=== PATIENT | male | born 1995 | race Caucasian/White ===

== ENCOUNTER 2021-02-18 09:46 | Emergency (ER) | payer OTHER, SELFPAY ==
[2021-02-18 10:13] VITALS: BP 143/82; PULSE 96; RESP 18; TEMP 36.4; O2SAT 97; BMI 31.4
--- NOTE | 2021-02-18 10:24 | XRR_ITS ---
PROCEDURE INFORMATION: Exam: XR Chest Exam date and time: 02/18/2021 10:41 AM Age: 26 years old Clinical indication: Cough and dyspnea; Additional info: Dyspnea/cough TECHNIQUE: Imaging protocol: XR of the chest Views: 1 view. COMPARISON: No relevant prior studies available. FINDINGS: Lungs: Unremarkable. No consolidation. Pleural spaces: Unremarkable. No pleural effusion. No pneumothorax. Heart/Mediastinum: Unremarkable. No cardiomegaly. Bones/joints: Unremarkable. XR/XR chest 1V portable [id number] IMPRESSION: No acute findings.
--- NOTE | 2021-02-18 11:06 | ED_ITS ---
HPI - COVID General: Chief Complaint: Nausea/Vomiting/Diarrhea Stated Complaint: covid symptoms Time Seen by Provider: 02/18/21 10:10 Triage information: Has fever, cough or shortness of breath . No known COVID + exposure last 14 days History of Present Illness: HPI Narrative: 26-year-old male presents with complaints of cough nausea vomiting diarrhea headache that began yesterday. Some the symptoms already begun to improve, cough has been minimally productive of clear sputum no anosmia. Several other family members are simultaneously in the emergency room with similar symptoms. He is not previously been tested for Covid or had at that he is aware of. Has not had a vaccination. MD complaint: has COVID symptoms Prior covid testing: no COVID 19 common symptoms: positive fever(s), chills, productive cough (Clear mucus), fatigue, body aches, nausea, vomiting and diarrhea; negative throat pain or nasal congestion COVID 19 other sytmptoms: negative chest pain Onset (ago): day(s) Severity: mild COVID Results: Nasal/Oral Coronavirus 2019 PCR Pending 02/18/21 11:00 02/18/21 Review of Systems Const: Reports: fever(s), chills, body aches and fatigue ENMT: Denies: throat pain, ear or mastoid pain, nasal discharge or nasal congestion Card: Denies: chest pain, edema, dyspnea on exertion or orthopnea Resp: Reports: productive cough (Clear mucus) GI: Reports: nausea, vomiting and diarrhea : Denies: flank pain, dysuria, urinary frequency or urinary urgency Skin/Breast: Denies: rash or pruritus PFSH ED PFSH: Social History (Updated 02/18/21 @ 10:19 by Payam Cabrera RN) Smoking and tobacco status: current every day smoker cigarettes Packs smoked per day: 0.5 Alcohol intake: current Alcohol intake frequency: holidays/special occasions only Substance/Drug Use: current Substance/Drug use frequency: few times a week Substance/Drug use type: Marijuana Physical Exam Const: COMMON NORMALS: no acute distress GENERAL APPEARANCE: cooperative and comfortable ORIENTATION/CONSCIOUSNESS: Yes awake, Yes oriented to person, Yes oriented to place and Yes oriented to time HENMT: COMMON NORMALS: normocephalic, atraumatic and hearing grossly normal bilaterally HEAD & SCALP: normocephalic and atraumatic Neck/C-Spine: COMMON NORMALS: no JVD Resp: COMMON NORMALS: normal respiratory effort, No retractions, No use of accessory muscles and clear to auscultation bilaterally AUSCULTATION: clear to auscultation bilaterally Cardio: COMMON NORMALS: no JVD, regular rate, regular rhythm and No murmurs present (Cardio) RATE: regular rate RHYTHM: regular rhythm GI: COMMON NORMALS: Soft to palpation and No hepatosplenomegaly present AUSCULTATION: Yes normoactive bowel sounds PALPATION: Yes Soft to palpation, No Tenderness to palpation present (GI), No Guarding due to palpation present (GI) and Yes No hepatosplenomegaly present Extremity: COMMON NORMALS: normal to inspection, capillary refill normal, no clubbing, cyanosis or edema, no calf tenderness and no pedal edema Neuro: SENSORIUM/ORIENTATION: Yes oriented to person, Yes oriented to place and Yes oriented to time Skin: COMMON NORMALS: no rashes or lesions noted GENERAL SKIN EXAM: no rashes or lesions noted Course Vital Signs: Vital signs: Vital Signs Temperature 97.5 F L 02/18/21 10:13 Pulse Rate 87 02/18/21 11:19 Respiratory Rate 18 02/18/21 11:19 Blood Pressure 135/76 02/18/21 11:19 Pulse Oximetry 96 02/18/21 11:19 MDM - COVID MDM Narrative: Medical decision making narrative: Exam unremarkable he is not tachycardic or hypotensive. Sats are good. He may very well have Covid. His symptoms are extremely mild I do not think there is any reason to admit or to add any medications. Supportive cares clear liquid diet advance as tolerated remain self quarantine all Covid results are returned. COVID Results: Nasal/Oral Coronavirus 2019 PCR Pending 02/18/21 11:00 02/18/21 Discharge Plan Discharge Patient Disposition: Home Clinical Impression: Viral URI with cough Condition: Stable Prescriptions: New albuterol sulfate 90 mcg/actuation HFA aerosol inhaler 2 inh INHALATION Q4H PRN (Reason: shortness of breath or wheezing) Qty: 18 RF: 0 Discharge Orders: Discharge ED (Routine); Ordered 02/18/21 Ordered By: Gucci Montejo Discharge Diet: Usual diet Discharge Activity: Resume usual activity Patient Instructions: Opioid Safety Activity Restrictions/Additional Instructions: Your tested for Covid. Recommend that you remain self quarantine until results are back. You can use albuterol as needed. If symptoms worsen or change return. 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
[2021-02-18 11:19] VITALS: BP 135/76; PULSE 87; RESP 18; O2SAT 96
[2021-02-19 16:29] LABS: Coronavirus Test Green County Not Detected
--- NOTE | 2021-02-20 08:23 | PC.NURSE ---
notified of negative COVID results
== END 2021-02-18 11:19 | disposition home or self-care (01) ==
PROVIDERS: Emergency Provider Family Medicine
DX: J06.9 Acute upper respiratory infection, unspecified (principal); F17.210 Nicotine dependence, cigarettes, uncomplicated
CPT/HCPCS: 71045; 87635; 99283

== ENCOUNTER 2021-02-19 14:36 | Emergency (ER) | payer OTHER, SELFPAY ==
[2021-02-19 15:26] VITALS: BP 114/69; PULSE 80; RESP 16; TEMP 37.3; O2SAT 95; BMI 30.8
--- NOTE | 2021-02-19 15:55 | W.ED.SYNCOPE ---
HPI - Syncope General: Chief Complaint: Syncope Stated Complaint: Fainted Time Seen by Provider: 02/19/21 15:34 Source: patient Mode of arrival: ambulatory Limitations: no limitations History of Present Illness: HPI narrative: Patient is a 26-year-old male who presents to ED today along with his significant other for complaints of a syncopal episode. Patient tells me he was straining to have a bowel movement when he passed out. Significant other states he was unconscious for less than a minute. He states he struck his lip and sustained a lip laceration. Patient states he feels completely normal now. He has no chest pain, shortness of breath, difficulty breathing. No headache, visual changes, neurologic complaints. MD complaint: loss of consciousness Onset (ago): hour(s) -: second(s) Prodromal symptoms: none Witnessed: No Context: other (straining with BM) Injuries sustained associated with event: mouth/tongue (lip laceration) Associated symptoms: Reports no associated symptoms; Deny chest pain, fever(s), headache(s), lightheadedness, nausea or vertigo Treatments prior to arrival: none Review of Systems Const: Denies: fever(s) or chills Eyes: Denies: change in vision, blurry vision or photophobia Card: Reports: syncope; Denies: chest pain, palpitations, irregular heart rhythm, edema, lightheadedness, pre-syncope, dyspnea on exertion or orthopnea Resp: Denies: dyspnea GI: Denies: nausea or vomiting Musc: Denies: neck pain, back pain, extremity pain, extremity swelling or joint pain Skin/Breast: Reports: other (lip laceration) Neuro: Denies: headache(s), numbness in extremities, weakness in extremities, sensory changes, lack of coordination, difficulty walking, frequent falls, dizziness, vertigo, confusion, Slurred speech present or seizure-like activity [facility] ED PFSH: Social History Smoking and tobacco status: current every day smoker cigarettes Packs smoked per day: 0.5 Alcohol intake: current Alcohol intake frequency: holidays/special occasions only Physical Exam Const: COMMON NORMALS: no acute distress, average body habitus, patient oriented x3, no limitations, healthy appearing, alert and well nourished GENERAL APPEARANCE: cooperative ORIENTATION/CONSCIOUSNESS: Yes awake, Yes oriented to person, Yes oriented to place and Yes oriented to time HENMT: COMMON NORMALS: normocephalic and atraumatic HEAD & SCALP: normal to inspection, normocephalic and atraumatic FACE & SINUS: normal facial exam MOUTH IMAGES: 1. 1cm gapping lip laceration to dry yuridia Eye: COMMON NORMALS: Equal, round and reactive pupils present and EOMs intact bilaterally GENERAL EYE: appearance normal, both eyes and all related structures PUPIL: Yes Equal, round and reactive pupils present OTHER: no nystagmus Neck/C-Spine: COMMON NORMALS: full ROM and no meningeal signs CERVICAL SPINE: No Cervical spine tenderness Resp: COMMON NORMALS: normal respiratory effort and clear to auscultation bilaterally AUSCULTATION: clear to auscultation bilaterally Cardio: COMMON NORMALS: regular rate and regular rhythm RATE: regular rate RHYTHM: regular rhythm Neuro: VELASQUEZ COMA SCALE: document GCS findings Velasquez coma scale eye opening: Spontaneous Velasquez coma scale verbal response: Orientated Velasquez coma scale motor response: Obey commands Velasquez coma scale total score: 15 COMMON NORMALS: patient oriented x3, CN's II-XII intact bilaterally, moves all extremities, no focal motor deficits, no sensory deficits noted and gait normal SENSORIUM/ORIENTATION: Yes alert, Yes oriented to person, Yes oriented to place and Yes oriented to time MENINGEAL SIGNS: Yes no meningeal signs COORDINATION/BALANCE: [id number] test normal SPEECH: speech normal GAIT: Yes Normal gait present MOTOR EXAM: 5/5 motor strength present throughout COORDINATION: [id number] test normal Procedures Laceration Laceration 1: Site: lip Size (cm): 1.0 Description: linear Depth: simple, single layer Local Anesthetic: lidocaine 1% Amount of anesthesia used (mL): 0.5 Pre-repair: irrigated extensively Skin layer closed with: other (chromic gut) Size (cm): 4-0 Number of sutures: 3 Technique: simple, interrupted Course Vital Signs: Vital signs: Vital Signs Temperature 99.1 F 02/19/21 15:26 Pulse Rate 80 02/19/21 16:42 Respiratory Rate 18 02/19/21 16:42 Blood Pressure 114/69 02/19/21 16:42 Pulse Oximetry 95 02/19/21 16:42 MDM - Syncope MDM Narrative: Medical decision making narrative: Patient has absolutely no physical complaints currently apart from his lip laceration. History is consistent with vasovagal syncope. His EKG is normal. Blood glucose normal. I do not see any need for emergent imaging or labs at this time. Return to ED precautions given. Lab Data: Attestation: I reviewed the patient's lab results. Labs: Lab Results 02/19/21 Range/Units 16:39 POC Glucose 126 H (70-110) mg/dL EKG Data^: EKG 1: EKG interpretation date: 02/19/21 EKG interpretation time: 15:39 Interpretation: Sinus rhythm Rate [address] elevation or depression changes noted Discharge Plan Discharge Patient Disposition: Home Clinical Impression: Syncope, vasovagal Laceration of lip Qualifiers: Encounter type: initial encounter Qualified Code(s): S01.511A - Laceration without foreign body of lip, initial encounter Condition: Stable Prescriptions: No Action albuterol sulfate 90 mcg/actuation HFA aerosol inhaler 2 inh INHALATION Q4H PRN (Reason: shortness of breath or wheezing) Qty: 18 RF: 0 Discharge Orders: Discharge ED (Routine); Ordered 02/19/21 Ordered By: Yenifer Velez Patient Instructions: Syncope (ED) Activity Restrictions/Additional Instructions: As we discussed lip sutures need to be cut out in 5 days. Return to the emergency department for repetitive episodes of passing out, lightheadedness, dizziness, chest pain, shortness of breath, difficulty breathing, severe headache, or any other concerns you may have. 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
[2021-02-19 16:03] VITALS: BP 114/69; O2SAT 95
[2021-02-19] MEDS: lidocaine 2% INJ 20 mL INJECTION (16:03)
--- NOTE | 2021-02-19 16:15 | ECG_ITS ---
[facility] Test Date: 2021-02-19 Pat Name: DARCIE SMITH Department: Room: Gender: Male Glove Wrapper: : 1995 Requested By: Yenifer Velez Order Number: [id number] Raman MD: Steve Lovett M.D. Measurements Intervals [place] Rate: 79 P: 57 IN: 152 QRS: 36 QRSD: 103 T: 31 QT: 359 QTc: 414 Interpretive Statements SINUS RHYTHM NONSPECIFIC T-WAVE ABNORMALITY No previous ECG available for comparison Electronically Signed On 02-19-2021 17:03:31 CDT by Steve Lovett M.D. [id number]
[2021-02-19 16:42] VITALS: BP 114/69; PULSE 80; RESP 18; O2SAT 95
--- NOTE | 2021-02-19 16:45 | PC.NURSE ---
[employer] SUPERVISOR notified of BS check
[2021-02-19 16:55] LABS: Glucose Point of Care 126 mg/dL (70-110)
== END 2021-02-19 16:35 | disposition home or self-care (01) ==
PROVIDERS: Emergency Provider Physician Assistant
DX: R55 Syncope and collapse (principal); S01.511A Laceration without foreign body of lip, initial encounter; F17.210 Nicotine dependence, cigarettes, uncomplicated; W18.11XA Fall from or off toilet without subsequent striking against object, initial encounter
CPT/HCPCS: 12011; 36416; 82962; 93005; 99283